=== PATIENT | male | born 1945 | race Hispanic/Latino ===

== ENCOUNTER 2016-10-03 02:34 | Inpatient (IN) | payer OTHER ==
[~2016-10-03] VITALS: Ht 165.1 cm; Wt 79.2 kg
--- NOTE | 2016-10-03 02:44 | ED CARDIAC/CP/PALPITATIONS ---
History of Present Illness General Chief Complaint: Chest Pain Stated Complaint: "PER PT CHEST PAIN" Source: patient Exam Limitations: no limitations Vital Signs & Intake/Output Vital Signs & Intake/Output Vital Signs Date Time Temp Pulse Resp B/P Pulse O2 O2 Flow FiO2 Ox Delivery Rate 10/03 1045 98 Nasal 2.0L Cannula 10/03 1045 98.0 62 16 120/72 98 Nasal 2.0L Cannula 10/03 1008 96.8 62 18 132/79 10/03 1007 96.8 62 18 132/79 10/03 1007 96.8 62 18 132/79 99 Nasal 2.0L Cannula 10/03 0937 61 18 123/70 100 Nasal 2.0L Cannula 10/03 0932 63 16 129/75 100 Nasal 2.0L Cannula 10/03 0912 60 18 132/68 98 Nasal 2.0L Cannula 10/03 0843 65 18 130/79 98 Nasal 2.0L Cannula 10/03 0824 69 18 126/75 99 Nasal 2.0L Cannula 10/03 0811 64 18 125/69 97 Nasal 2.0L Cannula 10/03 0752 59 18 168/78 99 Nasal 2.0L Cannula 10/03 0737 65 18 124/74 99 Nasal 2.0L Cannula 10/03 0722 65 18 126/72 99 Nasal 2.0L Cannula 10/03 0713 63 18 119/74 99 Nasal 2.0L Cannula 10/03 0652 66 18 153/71 98 Nasal 2.0L Cannula 10/03 0637 96.8 69 18 125/72 98 Nasal 2.0L Cannula 10/03 0622 63 18 131/76 98 Nasal 2.0L Cannula 10/03 0607 70 18 120/76 98 Nasal 2.0L Cannula 10/03 0552 77 18 123/74 97 Nasal 2.0L Cannula 10/03 0531 96.7 66 18 126/72 97 Nasal 2.0L Cannula 10/03 0438 76 18 137/77 96 Room Air 10/03 0344 94 Room Air 10/03 0342 82 18 133/77 94 Room Air 10/03 0320 78 18 135/85 97 Room Air 10/03 0312 88 18 128/83 96 Room Air 10/03 0257 97.9 69 18 175/87 96 Room Air Allergies Coded Allergies: atorvastatin (From LIPITOR) (Intermediate, MUSCLE PAIN 10/03/16) Reconcile Medications Aspirin (Aspirin*) 81 MG TAB.CHEW 1 TAB PO DAILY HEART HEALTH (Reported) Cholecalciferol (Vitamin D3) (Vitamin D) 1,000 UNIT TABLET 2 TAB PO DAILY VITAMIN (Reported) Fish Oil/Borage/Flax/Om3,6,9#1 ([place] 3-6-9 1,200 MG Softgel) 1,200 MG CAPSULE 1 CAP PO DAILY VITAMIN (Reported) Fluticasone/Salmeterol (Advair 250-50 Diskus) 250 MCG-50 MCG/DOSE BLST.W.DEV 1 PUF INH BID SOB (Reported) Glyburide 5 MG TABLET 1 TAB PO TID DFM (Reported) Lisinopril 10 MG TABLET 1 TAB PO BID HTN (Reported) Metformin HCl 1,000 MG TABLET 1 TAB PO BID DM (Reported) Metoprolol Tartrate 25 MG TABLET 0.5 TAB PO BID HTN (Reported) Multiple Vitamin (Multivitamins) 1 EACH TABLET 1 TAB PO DAILY VITAMIN ( Reported) Rosuvastatin Calcium (Crestor) 5 MG TABLET 3 TAB PO QWEEK CHOLESTEROL ( Reported) Triage Nurses Notes Reviewed? yes Onset: Abrupt Duration: hour(s): (1) Timing: single episode today Quality/Severity: severe, pressure, SQUEEZING Location: central Radiation: back Activities at Onset: sleep Aspirin Today: no aspirin today HPI: This is a 71-year-old male with history of hypertension, diabetes, coronary disease status post 6 vessel bypass in 2005 presents to the ER with chief complaint of chest pain which woke him up from sleep approximately one hour ago. He complains of a squeezing sensation in the center of his chest with some radiation to the back. Denies any shortness of breath or palpitations or diaphoresis. No history of recent chest pain. Last nuclear stress test done was in 2014 and reported to be normal. Patient is compliant with his medications. He took some ibuprofen prior to arrival. Patient states that prior to his bypass he did not have an ID. He states he was diagnosed on treadmill stress test. Past History Travel History Traveled to [place] past 21 day No Medical History Any Pertinent Medical History? see below for history Cardiovascular: CAD, hypertension, hyperlipidemia Endocrine: diabetes Surgical History Surgical History: CABG (x6 in 2005) Psychosocial History What is your primary language Mongolian Family History Hx Contributory? No Review of Systems Review of Systems Constitutional: Denies: chills, fever. EENTM: Reports: no symptoms. Respiratory: Denies: cough, short of breath. Cardiovascular: Reports: chest pain. Denies: palpitations, peripheral edema. GI: Denies: abdominal pain. Genitourinary: Reports: no symptoms. Musculoskeletal: Reports: back pain. Skin: Reports: no symptoms. Neurological/Psychological: Reports: no symptoms. Hematologic/Endocrine: Denies: bruising, bleeding, polyuria, polydipsia. Immunologic/Allergic: Denies: splenectomy. All Other Systems: Reviewed and Negative Physical Exam Physical Exam General Appearance: well developed/nourished, alert, awake, mild distress Head: atraumatic, normal appearance Eyes: Bilateral: normal appearance, PERRL, EOMI. Ears, Nose, Throat: normal pharynx, normal ENT inspection Neck: normal inspection, supple, full range of motion Respiratory: normal breath sounds, chest non-tender, no respiratory distress Cardiovascular: regular rate/rhythm Peripheral Pulses: 2+ radial (R), 2+ radial (L) Gastrointestinal: normal bowel sounds, soft, non-tender Rectal: deferred (DENIES BLACK/BLOODY STOOL) Extremities: normal inspection, normal range of motion Neurologic/Psych: no motor/sensory deficits, awake, alert, oriented x 3 Skin: intact, normal color, warm/dry Core Measures ACS in differential dx? Yes ASA ordered for poss ACS? Yes-ordered Severe Sepsis Present: No Septic Shock Present: No Progress Differential Diagnosis: AMI, aortic dissection, unstable angina Plan of Care: Orders Procedure Date/time Status TROPONIN LEVEL 10/03 1400 Active EKG 10/03 1400 Active Turn and Reposition 10/03 1130 Active Teach/Educate 10/03 1130 Active Skin Integrity Protocol 10/03 1130 Active Skin/Pressure Ulcer Assess (Sk 10/03 1130 Active Precautions 10/03 1130 Active Pain Treatment and Response 10/03 1130 Active Nutritional Intake, Monitor 10/03 1130 Active Isolation 10/03 1130 Active Patient Care Conference 10/03 1130 Active Activity/Ambulation 10/03 1130 Active ACTIVE SURVEILLANCE NARES 10/03 1050 Active PARTIAL THROMBOPLASTIN TIME 10/03 0940 Complete TROPONIN LEVEL 10/03 0800 Complete EKG 10/03 0800 Active EKG 10/03 0514 Active Pathway - chart 10/03 0511 Active Patient Data 10/03 0511 Active Patient Data 10/03 0436 Active Admit to inpatient 10/03 0426 Active Vital Signs 10/03 0426 Complete Code Status 10/03 0426 Active Intake & Output 10/03 025 Active EKG 10/03 025 Active Telemetry/Geotechnical Operating Engineer 10/03 250 Complete TROPONIN LEVEL 10/03 250 Complete PARTIAL THROMBOPLASTIN TIME 10/03 025 Complete PROTHROMBIN TIME 10/03 025 Complete COMPREHENSIVE METABOLIC PANEL 10/03 250 Complete CBC WITHOUT DIFFERENTIAL 10/03 250 Complete EKG 10/03 0236 Active TRC EVALUATION (GEN) 10/03 UNK Active House Staff 10/03 UNK Active VTE Mechanical Prophylaxis 10/03 UNK Active Vital Signs 10/03 UNK Active Intake & Output 10/03 UNK Complete FingerStick- Glucose 10/03 UNK Active ECHOCARDIOGRAM 10/03 UNK Active Current Medications Sig/[place] Start time Last Medication Dose Stop Time Status Admin Atorvastatin Calcium 80 MG 1700 10/03 1700 CAN (Lipitor) Rosuvastatin Calcium 5 MG 10/03 1130 AC (Crestor) Lisinopril 10 MG BID 10/03 1000 AC (Prinivil) Metoprolol Tartrate 12.5 MG BID 10/03 1000 AC (Lopressor) Acetaminophen 650 MG Q6P PRN 10/03 0515 AC (Tylenol) Acetaminophen/ 1 TAB Q6P PRN 10/03 0515 AC Hydrocodone Bitart (Vicodin) Oxycodone/ 2 TAB Q6P PRN 10/03 0515 AC Acetaminophen (Percocet) Laboratory Tests 10/03/16 1009: APTT 84 H 10/03/16 0800: Troponin I 0.12 *H 10/03/16 0300: Anion Gap 12, Estimated GFR > 60, BUN/Creatinine Ratio 20.0, Glucose 83, Calcium 9.7, Total Bilirubin 0.4, AST 31, ALT 71, Alkaline Phosphatase 44, Troponin I < 0.01, Total Protein 6.6, Albumin 4.0, Globulin 2.6, Albumin/Globulin Ratio 1.5, PT 11.1, INR 1.06, APTT 30, CBC w Diff NO MAN DIFF REQ, RBC 5.46, MCV 81.6, MCH 27.2, RDW 14.3, MPV 10.2, Gran % 23.9 L, Lymphocytes % 54.8 H, Monocytes % 14.2 H, Eosinophils % 6.5 H, Basophils % 0.6, Absolute Granulocytes 1.3 L, Absolute Lymphocytes 3.1, Absolute Monocytes 0.8 H, Absolute Eosinophils 0.4, Absolute Basophils 0, PUBS MCHC 33.3 Microbiology 10/03 1045 UPPER RESP: Surveillance Culture - RECD 3:08 AM Pain down to 5/10 from 910 after sl nitroglycerin. Subtle st elevation 1, avl, no previous to compare. repeat EKG in process Repeat EKG shows resolved ST depressions. Second nitroglycerin given. Heparin drip ordered. D/W dr. Starks. Currently EKG has normalized x 2. Troponin negative. Patient admitted to the ICU. Nitroglycerin drip ordered for 08/23 chest pain. Patient now chest pain free. (VICTORINA POOLE,SAMIA) Diagnostic Imaging: Viewed by Me: Radiology Read. Discussed w/RAD: Radiology Read. CXR Impression: PATIENT: REBEKAH CAMPOS I PRESENT AGE: 71 PATIENT ACCOUNT NO: [id number] : 44 LOCATION: [facility] ORDERING PHYSICIAN: SAMIA PRAJAPATI MD SERVICE DATE: 10/03/16 EXAM TYPE: RAD - XRY-PORTABLE CHEST XRAY EXAMINATION: XR PORTABLE CHEST CLINICAL INFORMATION: Chest pain COMPARISON: None TECHNIQUE: Portable AP view of the chest was obtained. FINDINGS : Status post median sternotomy for CABG. Lungs are clear. No pulmonary vascular congestion or pleural effusion. IMPRESSION: No acute abnormality of the chest. DICTATED BY: NICA CAMACHO MD DATE/TIME DICTATED:10/03/16355 SCRUFF WORKER :ARTURO DATE/TIME TRANSCRIBED:10/03/16355 CONFIDENTIAL, DO NOT COPY WITHOUT APPROPRIATE AUTHORIZATION. <Electronically signed in Other Vendor System> SIGNED BY: NICA CAMACHO MD 10/03/16 0401 Initial ED EKG: NSR, ST elevation (1, AVL 1/2 MM), ST depression (2,3,AVF, V2-V5 ) Repeat EKG: changed (NO ST DEPRESSION) Departure Departure Time of Disposition: 424 Disposition: STILL A PATIENT Condition: Stable Clinical Impression Primary Impression: ACS (acute coronary syndrome) Referrals: UNKNOWN (PCP/Family) Departure Forms: Customer Survey General Discharge Information Admission Note Spoke With: KAROLYN POOLE,EFREM Wagner Documentation of Exam: Documentation of any treatments & extenuating circumstances including Concerns Regarding Discharge (functional status, medication knowledge or non-compliance, living conditions, etc.) that warrant an admission rather than observation: [ HEPARIN DRIP, NITRO DRIP, ASPIRIN, SERIAL EKG, SERIAL TROPONIN, POSSIBLE BLACKSMITH ASSISTANT TODAY, ECHOCARDIOGRAM] Critical Care Note Critical Care Note Critical Care Time: 30-74 min
--- NOTE | 2016-10-03 02:45 | NUR ---
TRIAGE: PATIENT TO ER FROM HOME REPORTING +CP, HX BYPASS X 6 IN 2005. PATIENT REPORTS PAIN 9-10/10 AT THIS TIME. EKG IN PROGRESS. PATIENT CHANGED AND PLACED ON MARKETING INTELLIGENCE ANALYST, HR:80'S IRREGULAR W/ PRESENCE OF P-WAVES. REPORTS HX ARRHYTHMIA. PATIENT REPORTS PAIN WOKE FROM SLEEP APPROX 1AM W/ PAIN.
--- NOTE | 2016-10-03 02:53 | NUR ---
VICTORINA AT BEDSIDE FOR EVAL.
--- NOTE | 2016-10-03 03:04 | NUR ---
IV EST #20 LEFT FOREARM. PATIENT MEDICATED W/ ASA 325MG AND NITRO 1 TAB SL PER EMAR. TOLERATED WELL. SECOND EKG IN PROGRESS.
--- NOTE | 2016-10-03 03:08 | NUR ---
PATIENT REPORTS PAIN FROM 9/10 TO 5/10 S/P NITRO SL. SECOND NITRO BEING ORDERED BY MD PRAJAPATI AT THIS TIME.
[2016-10-03 03:13] LABS: ABSOLUTE BASOPHIL COUNT 0 /CUMM (0.0-0.2); ABSOLUTE EOSINOPHIL COUNT 0.4 /CUMM (0.0-0.7); ABSOLUTE GRANULOCYTE CT 1.3 /CUMM (1.4-6.5); ABSOLUTE LYMPH COUNT 3.1 /CUMM (1.2-3.4); ABSOLUTE MONOCYTE COUNT 0.8 /CUMM (0.10-0.60); BASOPHIL % 0.6 % (0.0-2.0); EOSINOPHIL % 6.5 % (0-5); GRANULOCYTE % 23.9 % (42.2-75.2); HEMATOCRIT 44.5 % (42-52); MEAN CORPUSCULAR HGB 27.2 PG (27.0-31.0); MEAN CORPUSCULAR HGB CONC 33.3 G/DL (33.0-37.0); MEAN CORPUSCULAR VOLUME 81.6 FL (80.0-94.0); MEAN PLATELET VOLUME 10.2 FL (7.4-10.4); PLATELET COUNT 167 /CUMM (130-400); RBC DISTRIBUTION WIDTH 14.3 % (11.5-14.5); RED BLOOD CELL CT 5.46 /CUMM (4.70-6.10); WHITE BLOOD CELL COUNT 5.6 /CUMM (4.8-10.8)
--- NOTE | 2016-10-03 03:13 | NUR ---
PATIENT MEDICATED W/ SECOND NITRO SL PER EMAR. TOLERATING WELL. REPORTS PAIN 12/21 TO 11/21. VICTORINA TO BEDSIDE FOR EVAL.
--- NOTE | 2016-10-03 03:21 | NUR ---
CURRENT PAIN 2/10.
[2016-10-03 03:27] LABS: PT 11.1 SEC (9.4-12.5); PTT 30 SEC (25-37)
--- NOTE | 2016-10-03 03:29 | NUR ---
SECOND IV EST #20 RIGHT FOREARM.
--- NOTE | 2016-10-03 03:41 | NUR ---
NIRTO PASTE 1 INCH APPLIED TO CHEST PER EMAR. TOLERATING WELL, CURRENT PAIN 1-2/10. PATIENT MEDICATED W/ HEPARIN BOLUS AND HEPARIN DRIP EST AT 18.9ML/HR (12 UNITS/KG/HR), DOSE AND RATE CONFIRMED W/ STEPHANIE RN. TOLERATING WELL. GUIAC NEGATIVE PER VICTORINA.
--- NOTE | 2016-10-03 03:46 | NUR ---
PORTABLE CHEST XRAY IN PROGRESS.
--- NOTE | 2016-10-03 04:01 | RADIOLOGY REPORT ---
EXAMINATION: XR PORTABLE CHEST CLINICAL INFORMATION: Chest pain COMPARISON: None TECHNIQUE: Portable AP view of the chest was obtained. FINDINGS: Status post median sternotomy for CABG. Lungs are clear. No pulmonary vascular congestion or pleural effusion. IMPRESSION: No acute abnormality of the chest.
--- NOTE | 2016-10-03 04:26 | NUR ---
MD PRAJAPATI AT BEDSIDE FOR REEVAL.
--- NOTE | 2016-10-03 04:39 | NUR ---
PATIENT MEDICATED W/ THIRD NITRO SL PER EMAR. TOLERATED WLL. VSS.
[2016-10-03] MEDS ORDERED: METFORMIN HCL1000 M1 PO (04:44)
[2016-10-03] MEDS ORDERED: LISINOPRIL10 M1 PO (04:45)
[2016-10-03] MEDS ORDERED: METOPROLOL TART25 M1 PO (04:45)
[2016-10-03] MEDS ORDERED: GLYBURIDE5 M1 PO (04:45)
[2016-10-03] MEDS ORDERED: ASPIRIN81 M4 PO (04:46)
[2016-10-03] MEDS ORDERED: CRESTOR5 M1 PO (04:46)
[2016-10-03] MEDS ORDERED: ADVAIR 250-501 EACH INH ×2 (04:47)
[2016-10-03] MEDS ORDERED: OMEGA 3-6-9 11200 MG PO (04:47)
[2016-10-03] MEDS ORDERED: VITAMIN D1000 UNIT PO (04:48)
[2016-10-03] MEDS ORDERED: MULTIVITAMINS1 EAC9 PO (04:48)
--- NOTE | 2016-10-03 04:50 | NUR ---
HOUSE STAFF AT BEDSIDE FOR EVAL. PATIENT HOME MED LIST UPDATED.
--- NOTE | 2016-10-03 04:52 | NUR ---
PT ASSIGNED TO RM# [id number] ICU
--- NOTE | 2016-10-03 04:59 | History & Physical ---
ROBERTO CARLOS POOLE,ARLENE 10/03/16 0457: General Information and HPI MD Statement: I have seen and personally examined REBEKAH CAMPOS I and documented this H&P. The patient is a 71 year old M who presented with a patient stated chief complaint of [chest pain]. Source of Information: patient Exam Limitations: no limitations History of Present Illness: This is a 71-year-old male with past medical history significant for hypertension, hyperlipidemia, and 6 vessel CABG in 2005, DEOVN, diabetes, benign adrenal tumor, who presents with chief complaint of chest pain. He stated it started around 1 AM this morning and it woke him from sleep. He describes it as a 9 out of 10 substernal pressure that radiates to his back and his right arm. He took aspirin and came to the hospital. He finds no relief with nitroglycerin. During time of interview he rates chest pain at 2/10. He is currently retired and denies any acute stressors. However he does endorse that a nephew of his yesterday in the morning. He denies any shortness of breath, diaphoresis, palpitations, dizziness, abdominal pain, or nausea. Per the patient his last nuclear stress test was done in 2014 and it was supposedly normal. Of note, he states that he's never had an AK and that his CAD was diagnosed via a stress test. Patient states that all his usual doctors are at [facility]. He denies any history of cigarette smoking, IV drug abuse and endorses only occasional intake of alcohol. 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 Ambulation: independent IADLs Independent: shopping, housework, finances, food prep, telephone, transportation , medication admin. Employment History Employment Retired Review of Systems Review of Systems Constitutional: Denies: chills, fever, malaise, weakness. EENTM: Reports: no symptoms. Denies: blurred vision. Cardiovascular: Reports: chest pain. Denies: edema, orthopena, palpitations. Respiratory: Reports: no symptoms. Denies: cough, short of breath. GI: Denies: abdominal pain, constipation, diarrhea. Genitourinary: Reports: no symptoms. Musculoskeletal: Reports: no symptoms. Skin: Reports: no symptoms. Exam & Diagnostic Data Last 24 Hrs of Vital Signs/I&O Vital Signs Date Time Temp Pulse Resp B/P Pulse O2 O2 Flow FiO2 Ox Delivery Rate 10/03 0438 76 18 137/77 96 Room Air 10/03 0344 94 Room Air 10/03 0342 82 18 133/77 94 Room Air 10/03 0320 78 18 135/85 97 Room Air 10/03 0312 88 18 128/83 96 Room Air 10/03 0257 97.9 69 18 175/87 96 Room Air Intake & Output 10/03 0800 10/03 0000 10/02 1600 Intake Total Output Total Balance Patient 78.925 kg Weight Physical Exam General Appearance Alert, Oriented X3, Cooperative, No Acute Distress Skin No Rashes, No Breakdown, No Significant Lesion HEENT Atraumatic, PERRLA, EOMI Neck Supple Cardiovascular Regular Rate, Normal S1, Normal S2 Lungs Clear to Auscultation, Normal Air Movement Abdomen Soft, No Tenderness Neurological Normal Speech, Cranial Nerves 3-12 NL Last 24 Hrs of Labs/Arvin: Laboratory Tests 10/03/16 0300: Anion Gap 12, Estimated GFR > 60, BUN/Creatinine Ratio 20.0, Glucose 83, Calcium 9.7, Total Bilirubin 0.4, AST 31, ALT 71, Alkaline Phosphatase 44, Troponin I < 0.01, Total Protein 6.6, Albumin 4.0, Globulin 2.6, Albumin/Globulin Ratio 1.5, PT 11.1, INR 1.06, APTT 30, CBC w Diff NO MAN DIFF REQ, RBC 5.46, MCV 81.6, MCH 27.2, RDW 14.3, MPV 10.2, Gran % 23.9 L, Lymphocytes % 54.8 H, Monocytes % 14.2 H, Eosinophils % 6.5 H, Basophils % 0.6, Absolute Granulocytes 1.3 L, Absolute Lymphocytes 3.1, Absolute Monocytes 0.8 H, Absolute Eosinophils 0.4, Absolute Basophils 0, PUBS MCHC 33.3 Assessment/Plan Assessment: This is a 71-year-old male with past medical history significant for 6 vessel bypass in 2005, hypertension, hyperlipidemia, diabetes, DEVON, who presents with chief complaint of chest pain. Given patient's significant cardiac history and EKG changes in ED, patient will be admitted to ICU for further workup. First EKG showed QTC 417, heart rate 68, and T-wave inversions in 2, and V2-V4. He does have half a millimeter ST elevations in aVL and lead 1 Plan: 1.Chest pain: Patient has significant cardiac history including 6 vessel bypass. He denies any history of AK. Chest x-ray shows no acute abnormalities. CBC showed a normal white count, hemoglobin and hematocrit. First troponin negative. EKG shows ST depression in III and V2 through V4. Repeat EKG done 30 minutes later showed no evidence of EKG changes. * Patient was started on Heparin drip * Trend troponin * Monitor EKG * Nothing by mouth * Cardiology consult * Possibility of cath in a.m. * Low-dose aspirin 2. Diabetes: Patient is on glyburide and metformin at home. Hold home medications * Nothing by mouth sliding scale * Fingerstick 3. Hyperlipidemia/hypertension: In ED his blood pressure was recorded at 175/87 , subsequently down to 133/77. * Continue Crestor 5 mg 3 times a week * Continue lisinopril 10 mg twice a day * Continue metoprolol tartrate 2.5 mg 0.5 twice a day Full code Nothing by mouth Chemical DVT prophylaxis As Ranked By This Provider Problem List: 1. ACS (acute coronary syndrome) Core Measures/Miscellaneous Acute Coronary Syndrome ACS Diagnosis: Yes Cerebrovascular Accident CVA/TIA Diagnosis: No Congestive Heart Failure CHF Diagnosis: No Venous Thromboembolism VTE Risk Factors: Age > 40 VTE Prophylaxis Ordered Inpt: [facility] d/t: No contraindications No VTE Pharm Prophylaxis d/t: No contraindications VTE Diagnosis: No VTE Type: NONE VTE Confirmed by (Test): NONE Severe Sepsis Severe Sepsis Present: No Septic Shock Septic Shock Present: No Miscellaneous Documentation Attending Case Discussed With: KAROLYN POOLE,EFREM Wagner Primary Care Physician: UNKNOWN Patient sees these Specialists unknown Level of Patient Care: Critical Care (CRI) Consults Needed: Consulting Specialty: Cardiology HANG POOLE,CARL 10/03/16 0506: Resident Review Statement Resident Statement: examined this patient, discussed with development intern Other Findings: 71-year-old gentleman with a history of 6 vessel bypass over 10 years ago, coronary artery disease, hypertension, hyperlipidemia, diabetes mellitus presents to the emergency room this morning after being awoken from his sleep with 10 out of 10 sharp substernal chest pain radiating to his left upper shoulder and arm. The pain did not self alleviate and he presented to the emergency room. At present he only complains of 2 out of 10 chest pain but has been given a couple of sublingual nitroglycerin and nitroglycerin paste. At present he denies any shortness of breath, nausea, vomiting, diarrhea, fevers, chills, recent illnesses or sick contacts. States he received news that one of his nephews yesterday which has been an emotional stressor on him. He denies any previous history of cigarette smoking, alcohol or illicit drug use. 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 Off note, patient states that all his physicians are [facility]. Physical exam- Vital signs are stable Lungs are clear to auscultation bilaterally Cardiac exam reveals a normal S1 and S2, no murmurs Abdomen soft, nontender, bowel sounds are appreciated Extremities show no cyanosis or clubbing or peripheral edema EKG- Rate 68, RI 188, QRS 84, QTc 417; sinus rhythm, T-wave inversions in leads 3, aVF, ST depression half a millimeter in leads V2 through V4 Chest x-ray is unremarkable for any acute abnormalities Assessment- 1. Angina at rest 2. History of coronary artery disease, status post 6 vessel bypass 10 years ago 3. Hypertension 4. Hyperlipidemia 5. Diabetes mellitus Plan- ICU admit Trend troponin, EKG Echo He has been started on heparin drip per ER after consulting with Dr. Starks Cardio consult Continue all by mouth home meds Patient nothing by mouth for now, will likely require cath We'll start D5 half-normal saline at 50 mL per hour Nothing by mouth sliding scale Pain pathway DVT prophylaxis is being addressed with IV heparin Full code KAROLYN POOLE,CALLAO 10/03/16 8235: General Information and HPI Allergies/Medications Home Med list Aspirin (Aspirin*) 81 MG TAB.CHEW 1 TAB PO DAILY HEART HEALTH (Reported) Cholecalciferol (Vitamin D3) (Vitamin D) 1,000 UNIT TABLET 2 TAB PO DAILY VITAMIN (Reported) Fish Oil/Borage/Flax/Om3,6,9#1 ([place] 3-6-9 1,200 MG Softgel) 1,200 MG CAPSULE 1 CAP PO DAILY VITAMIN (Reported) Fluticasone/Salmeterol (Advair 250-50 Diskus) 250 MCG-50 MCG/DOSE BLST.W.DEV 1 PUF INH BID SOB (Reported) Glyburide 5 MG TABLET 1 TAB PO TID DFM (Reported) Heparin (Heparin-1/2NS 25,000 Units/500) 25,000 UNIT/500 ML (50 UNIT/ML) IV.SOLN 1 BAG IV ONCE blood thinner Lisinopril 10 MG TABLET 1 TAB PO BID HTN (Reported) Metformin HCl 1,000 MG TABLET 1 TAB PO BID DM (Reported) Metoprolol Tartrate 25 MG TABLET 0.5 TAB PO BID HTN (Reported) Multiple Vitamin (Multivitamins) 1 EACH TABLET 1 TAB PO DAILY VITAMIN ( Reported) Nitroglycerin/D5w (Ntg 25 MG/250 Ml in D5w) 25 MG/250 ML (0.1 MG/ML) INFUS..BTL 1 BAG IV ONCE CHEST PAIN Rosuvastatin Calcium (Crestor) 5 MG TABLET 3 TAB PO QWEEK CHOLESTEROL ( Reported) Attending MD Review Statement Attending Statement Attending MD Statement: examined this patient, discuss w/resident/PA/DIRECT MAIL CLERK, discussed with family, discussed with nursing, reviewed images Attending Assessment/Plan: Patient is a 71-year-old man status post bypass surgery about 10 years ago. He presents with typical chest pain midsternal radiating to his right arm which started at 1:00 this morning and was rated at 10 over 10 at the time. It is subsequently decreased but he still has 1/10 pain at this time. His initial EKG showed [address] depression in the inferior and anterior leads with [address] elevation in leads 1 and aVL. An EKG done 20 minutes later showed resolution of the ST segment changes coincident with the patient's chest pain improving considerably. He has not had any arrhythmias or any other complications since he has been here about 6 hours. His first set of troponin was negative and a second set is pending. I discussed with the the patient that I thought he should have cardiac catheterization done early although this is not technically a PAMI case. He prefers to be transferred to [facility] for this and I will contact his regular doctor, Dr. Curt Harrington, for coordination of this. If this is not possible we will transfer him to a closer hospital. In the meantime he is on heparin, IV nitroglycerin, aspirin and we will continue this plus his regular medications.
--- NOTE | 2016-10-03 05:32 | NUR ---
REPORT CALLED TO TURBOGENERATOR OPERATORDEANDRE BOWLES THOUGH ICU UNABLE TO TAKE PATIENT IN UNIT AT THIS TIME PER ICU AND RN ENRICHMENT SPECIALIST. MD PRAJAPATI AT BEDSIDE FOR REEVAL. PATENT REPORTS 08/23 CONTINUED CP. PLACED ON 2LNC BY AT THIS TIME FOR COMFORT. VSS.
--- NOTE | 2016-10-03 05:52 | NUR ---
FINGERSTICK:161. D5-1/2 NS INFUSING AT 50ML/HR PER EMAR. TOLERATING WELL. NITRO DRIP INFUSING AT 3ML/HR (5 MCG/MINUTE) PER MD PRAJAPATI. TOLERATING WELL. WILL CONTINUE TO MONITOR BP Q15 MINUTES. D5-1/2 NS INFUSING VIA IV SITE #1 W/ NITRO DRIP (PER PHARMACY THEY ARE COMPATABLE. HEPARIN DRIP IS NOT COMPATABLE W/ D5-1/2 NS). HEPARIN DRIP CONTINUES TO INFUSE VIA IV SITE #2.
--- NOTE | 2016-10-03 06:06 | NUR ---
PATIENT MEDICATED W/ 4UNITS NOVOLIN R PER SLIDING SCALE FOR NPO PATIENT. DOSE VERIFIED W/ YAMILETH CARRERA. TOLERATED WELL. PATIENT REPORTS "THE CP IS FINALLY STARTING TO GO AWAY."
--- NOTE | 2016-10-03 07:20 | NUR ---
ASSUMED CARE OF RN IVONNE PT RESTING ON STRETCHER WITH EYES CLOSED; REGULAR RESPIRATIONS AND EQUAL CHEST RISE AND FALL NOTED. SAT 99% ON 2L NC. PT REMAINS NORMAL SINUS, RATE 60'S WITH B/P AUTO CYCLING Q 15 MIN. AWAITING BED ASSIGNMENT AT THIS TIME
--- NOTE | 2016-10-03 07:27 | PN- Resident CRCU ---
Subjective HPI/CRCU Issues: No acute events overnight. Patient seen and examined this morning. Chest pain has resolved. He feels well and has no complaints. Objective Vital Signs & I&O Last 8 Hrs of Vitals and I&O: Vital Signs Date Time Temp Pulse Resp B/P Pulse O2 O2 Flow FiO2 Ox Delivery Rate 10/03 0824 69 18 126/75 99 Nasal 2.0L Cannula 10/03 0811 64 18 125/69 97 Nasal 2.0L Cannula 10/03 0752 59 18 168/78 99 Nasal 2.0L Cannula 10/03 0737 65 18 124/74 99 Nasal 2.0L Cannula 10/03 0722 65 18 126/72 99 Nasal 2.0L Cannula 10/03 0713 63 18 119/74 99 Nasal 2.0L Cannula 10/03 0652 66 18 153/71 98 Nasal 2.0L Cannula 10/03 0637 96.8 69 18 125/72 98 Nasal 2.0L Cannula 10/03 0622 63 18 131/76 98 Nasal 2.0L Cannula 10/03 0607 70 18 120/76 98 Nasal 2.0L Cannula 10/03 0552 77 18 123/74 97 Nasal 2.0L Cannula 10/03 0531 96.7 66 18 126/72 97 Nasal 2.0L Cannula 10/03 0438 76 18 137/77 96 Room Air 10/03 0344 94 Room Air 10/03 0342 82 18 133/77 94 Room Air 10/03 0320 78 18 135/85 97 Room Air 10/03 0312 88 18 128/83 96 Room Air 10/03 0257 97.9 69 18 175/87 96 Room Air Exam General Appearance: well developed/nourished, no apparent distress, alert, awake , comfortable Head: atraumatic, normal appearance Ears, Nose, Throat: moist mucus membranes Neck: supple Respiratory: lungs clear Cardiovascular: regular rate/rhythm, normal S1 and S2 Gastrointestinal: soft, non-tender, positive bowel sounds Extremities: no edema Cranial Nerves: grossly normal Skin: normal color, warm/dry Current Medications: Current Medications Sig/Marbin Start time Last Medication Dose Route Stop Time Status Admin Acetaminophen 650 MG Q6P PRN 10/03 0415 AC PO Acetaminophen/ 1 TAB Q6P PRN 10/03 0415 AC Hydrocodone Bitart PO Aspirin 81 MG DAILY 10/03 1000 AC PO Aspirin 0 .STK-MED ONE 10/03 0303 DC PO Aspirin 325 MG ONCE ONE 10/03 0300 DC 10/03 PO 10/03 0301 0304 Atorvastatin Calcium 80 MG 1700 10/03 1700 UNVr PO Budesonide/ 2 PUF BID 10/03 1000 AC Formoterol Fumarate INH Dextrose/Sodium 1,000 ML Q20H 10/03 0515 AC 10/03 Chloride IV 0547 Heparin Sodium 0 .STK-MED ONE 10/03 0332 DC (Porcine) .ROUTE Heparin Sodium 4,000 UNIT ONCE ONE 10/03 0330 DC 10/03 (Porcine) IV 10/03 0331 0338 Heparin Sodium 25,000 UNIT Q24H 10/03 0330 AC 10/03 (Porcine) IV 0339 Sodium Chloride 500 ML Insulin Human Regular 0 Q6 10/03 0600 AC 10/03 SC 0606 Lisinopril 10 MG BID 10/03 1000 AC PO Metoprolol Tartrate 12.5 MG BID 10/03 1000 AC PO Nitroglycerin 25 MG ONCE ONE 10/03 0545 AC 10/03 Dextrose/Water 250 ML IV 10/04 0544 0552 Nitroglycerin 0.4 MG ONCE ONE 10/03 0430 DC 10/03 SL 10/03 0431 0439 Nitroglycerin 0 .STK-MED ONE 10/03 0333 WA TOP Nitroglycerin 1 GM ONCE ONE 10/03 0330 DC 10/03 TOP 10/03 0331 0338 Nitroglycerin 0.4 MG ONCE ONE 10/03 0315 DC 10/03 SL 10/03 0316 0313 Nitroglycerin 0.4 MG ONCE ONE 10/03 0300 WA 10/03 SL 10/03 0301 0304 Oxycodone/ 2 TAB Q6P PRN 10/03 0515 AC Acetaminophen PO Patient Medication 1 UNIT ONE NR 10/03 0700 Teaching ED 10/03 1300 Patient Medication 1 UNIT ONE NR 10/03 0700 [facility] ED 10/03 1300 Patient Medication 1 UNIT ONE NR 10/03 0700 [facility] ED 10/03 1300 Results Results: Laboratory Tests 10/03 10/03 0800 0300 Chemistry Sodium (137 - 145 mmol/L) 141 Potassium (3.5 - 5.1 mmol/L) 3.9 Chloride (98 - 107 mmol/L) 102 Carbon Dioxide (22 - 30 mmol/L) 27 Anion Gap (5 - 16) 12 BUN (9 - 20 mg/dL) 20 Creatinine (0.7 - 1.2 mg/dL) 1.0 Estimated GFR (>60 ml/min) > 60 BUN/Creatinine Ratio (7 - 25 %) 20.0 Glucose (65 - 99 mg/dL) 83 Calcium (8.4 - 10.2 mg/dL) 9.7 Total Bilirubin (0.2 - 1.3 mg/dL) 0.4 AST (17 - 59 U/L) 31 ALT (21 - 72 U/L) 71 Alkaline Phosphatase (< 127 U/L) 44 Troponin I (<0.11 ng/ml) Pending < 0.01 Total Protein (6.3 - 8.2 g/dL) 6.6 Albumin (3.5 - 5.0 g/dL) 4.0 Globulin (1.9 - 4.2 gm/dL) 2.6 Albumin/Globulin Ratio (1.1 - 2.2 %) 1.5 Coagulation PT (9.4 - 12.5 SEC) 11.1 INR (0.90 - 1.17) 1.06 APTT (25 - 37 SEC) 30 Hematology CBC w Diff NO MAN DIFF REQ WBC (4.8 - 10.8 /CUMM) 5.6 RBC (4.70 - 6.10 /CUMM) 5.46 Hgb (14.0 - 18.0 G/DL) 14.9 Hct (42 - 52 %) 44.5 MCV (80.0 - 94.0 FL) 81.6 MCH (27.0 - 31.0 PG) 27.2 RDW (11.5 - 14.5 %) 14.3 Plt Count (130 - 400 /CUMM) 167 MPV (7.4 - 10.4 FL) 10.2 Gran % (42.2 - 75.2 %) 23.9 L Lymphocytes % (20.5 - 51.1 %) 54.8 H Monocytes % (1.7 - 9.3 %) 14.2 H Eosinophils % (0 - 5 %) 6.5 H Basophils % (0.0 - 2.0 %) 0.6 Absolute Granulocytes (1.4 - 6.5 /CUMM) 1.3 L Absolute Lymphocytes (1.2 - 3.4 /CUMM) 3.1 Absolute Monocytes (0.10 - 0.60 /CUMM) 0.8 H Absolute Eosinophils (0.0 - 0.7 /CUMM) 0.4 Absolute Basophils (0.0 - 0.2 /CUMM) 0 PUBS MCHC (33.0 - 37.0 G/DL) 33.3 EKG Findings: Sinus rhythm HR [address] depression in the inferior and anterior leads [address] elevation in leads 1 and aVL QTc 417 Radiology Findings: No acute abnormality of the chest. Impression/Plan Impression/Problem List Impression: 71 y/o M with PMHx of CAD s/p 6 vessel CABG in 2005, HTN and T2DM who presents with chest pain. Problem List: 1. NSTEMI (non-ST elevated myocardial infarction) Pain Ratin Tomorrow's Labs & Rationales: None - patient was transferred to [facility]. Plan Respiratory: Stable. Satting well and without shortness of breath on 2 L NC. Infectious Diseases: Afebrile and without leukocytosis. No signs or symptoms of infection. Cardiovascular: #Chest pain: Initial EKG showed [address] depressions in the inferior and anterior leads and [address] elevations in leads 1 and aVL. EKG was repeated 20 minutes later which showed the resolution of the initial EKG changes. Cardiology was consulted and patient was started on IV heparin and nitroglycerin drips per their recs. Patient's home medications including metoprolol, lisinopril, aspirin and statin were continued. Initial troponin was <0.01 but later uptrended to 0.12. This likely represents NSTEMI in the presence of ST depressions. Dr. Starks was consulted who felt that patient would benefit from a cardiac catheterization and needs to be transferred. * Patient was transferred to [facility] for cardiac catheterization. Hematology: H/H stable. Metabolic: #T2DM: Prior to admission oral hypoglycemic agents were held and patient was maintained on Novolog NPO sliding scale. Alimentary: NPO for cardiac catheterization Neurological: AAO x3. No issues. DVT/Prophylaxis: mechanical, pharmacological Code Status: Full Code
--- NOTE | 2016-10-03 07:57 | NUR ---
PT WOKEN FROM SLEEP. WHEN ASKED ABOUT PAIN, STATES "ITS JUST ABOUT GONE". DRIPS REMAIN FOLLOWS: L FOREARM: NITRO AT 3ML/HR AND D5 1/2 NS @ 50 ML/HR R FOREARM: HEPARIN IN 1/2 NS @ 12 UNITS/KH/HR = 18.9 ML/HR PT DENIES ANY NEEDS OR COMPLAINTS AT THIS TIME AND IS AWARE HE IS WAITING ON A BED ASSIGNMENT UPSTAIRS. HOUSE STAFF INTO EVAL MST DRAWING REPEAT TROPONIN AT THIS TIME
--- NOTE | 2016-10-03 08:08 | NUR ---
REPEAT TROPONIN (0800) SENT TO LAB BY [facility] REPEAT EKG COMPLETED AND PLACED IN CHART RESIDENT IMGE PAGED AT X108 AND MADE AWARE EKG IS IN CHART
--- NOTE | 2016-10-03 08:13 | NUR ---
EKG VIEWED BY IM[facility] - "NO CHANGES" PLACED IN CHART
--- NOTE | 2016-10-03 08:47 | NUR ---
PT VOIDED IN URINAL - APPROX 200 ML CLEAR URINE ABLE TO TURN AND REPOSITION IN BED INDEPENDENTLY. REMAINS WITHOUT COMPLAINTS. DENIES CURRENT PAIN. CONVERSING WITHOUT ANY DISTRESS NOTED. REMAINS AWARE HE IS WAITING FOR BED ASSIGNMENT. TELEVISION REMOTE GIVEN
--- NOTE | 2016-10-03 09:14 | NUR ---
CARDIOLOGY AT THE BEDSIDE
--- NOTE | 2016-10-03 09:26 | NUR ---
BED ASSIGNMENT 105
--- NOTE | 2016-10-03 09:40 | NUR ---
PER LAB, TROPONIN HAS "4 MINUTES LEFT" AND WILL BE RESULTED
--- NOTE | 2016-10-03 09:47 | NUR ---
CRITICAL TEST RESULTS [id number] REBEKAH CAMPOS I 71 M TESTS AND RESULTS: TROPONIN 0.12 Results received and read back by: AUDRA TOWNSEND Results received date and time: 10/03/16 0947 The following provider was notified of the results, and read the results back: 0.12 Notified date and time: 10/03/16 at [facility] X 108
--- NOTE | 2016-10-03 09:50 | NUR ---
SPOKE WITH IMGE WHO STATES PT IS NOT BEING TRANSFERRED AT THIS TIME AND MAY BE TRANSPORTED TO ICU. CRITICAL RESULT REPORTED TO IMGE ALONG WITH MOST RECENT VITAL SIGNS. PER MD, HOLD LISINOPRIL AND LOPRESSOR PO AT THIS TIME DUE TO CONSISTENT HR 60'S AND B/P 123/70.
--- NOTE | 2016-10-03 09:59 | NUR ---
MED WITH SYMBICORT AND ASA PER OCT. PT REMAINS WITHOUT COMPLAINTS.
--- NOTE | 2016-10-03 10:06 | NUR ---
REPORT GIVEN TO ED IN ICU TRANSPORT CALLED
--- NOTE | 2016-10-03 10:10 | NUR ---
PPT DRAWN AND SENT TO THE LAB (BLUE TOP)
[2016-10-03 10:29] LABS: PTT 84 SEC (25-37)
[2016-10-03 10:45] VITALS: BP 120/72
--- NOTE | 2016-10-03 10:46 | NUR ---
PT TRANSPORTED TO ICU 105 ON MONITOR WITH THIS RN REMAIN NORMAL SINUS ON MONITOR, RATE 60'S-70. PT DENIES ACUTE CHEST PAIN STATING "IT COMES A LITTLE BIT BUT NOT MUCH. LESS THAN A 1 WHEN I HAVE IT". PT DENIES ANY OTHER COMPLAINTS. PLEASANT AND CONVERSANT THOUGHOUT TRANSPORT CARE TRANSFERRD TO RESERVATION CLERK ED.
--- NOTE | 2016-10-03 11:54 | Discharge Summary ---
Visit Information Visit Dates Admission Date: 10/03/16 Discharge Date: 10/03/2016 Hospital Course Course Attending Physician: EFREM PARR MD, V. Primary Care Physician: UNKNOWN Consulting Request: Consulting Specialty: Cardiology Hospital Course: This is a 71-year-old male with past medical history significant for hypertension, hyperlipidemia, and 6 vessel CABG in 2005, DEV[place], diabetes, benign adrenal tumor, who presents with chief complaint of chest pain. He stated it started around 1 AM this morning and it woke him from sleep. He describes it as a 9 out of 10 substernal pressure that radiates to his back and his right arm. He took aspirin and came to the hospital. He finds no relief with nitroglycerin. During time of interview he rates chest pain at 2/10. Problem list: 1. NSTEMI/STEMI. 2. History of coronary artery disease, status post 6 vessel bypass 10 years ago Hospital course: Patient was admitted to the ICU due to EKG changes of [address] segment depression in the inferior anterior lead with [address] elevation in lead 1 and aVL. Patient started on IV nitroglycerin and IV heparin drip, his first troponin was negative, second troponin 0.12. Also continue the patient's home medication of metoprolol, lisinopril, statin and aspirin. Patient free of any chest pain after we start his treatment. After evaluation by the fur joiner, he recommended the patient to be transferred for cardiac catheterization to [facility]. Imaging: EXAMINATION: XR PORTABLE CHEST FINDINGS: Status post median sternotomy for CABG. Lungs are clear. No pulmonary vascular congestion or pleural effusion. IMPRESSION: No acute abnormality of the chest. Allergies: Coded Allergies: atorvastatin (From LIPITOR) (Intermediate, MUSCLE PAIN 10/03/16) Disposition Summary Disposition Principal Diagnosis: NSTEMI Additional Diagnosis: History of coronary artery disease, status post 6 vessel bypass 10 years ago Hypertension Hyperlipidemia Diabetes mellitus Discharge Disposition: other general hospital Discharge Instructions General Discharge Information Code Status: Full Code Patient's Diet: Diabetic Patient's Activity: As torelated. Follow-Up Instructions/Appts: Please follow-up with your primary care doctor after discharge Please follow-up with your fur joiner after discharge. Medications at Discharge Discharge Medications: Continue taking these medications: Metformin HCl (Metformin HCl) 1,000 MG TABLET 1 Tablet ORAL TWICE DAILY Comments: NOT GIVEN IN HOSPITAL TODAY Glyburide (Glyburide) 5 MG TABLET 1 Tablet ORAL THREE TIMES DAILY Comments: NOT GIVEN IN HOSPITAL TODAY Metoprolol Tartrate (Metoprolol Tartrate) 25 MG TABLET 0.5 Tablet ORAL TWICE DAILY Comments: 12.5 MG GIVEN 10/03/16 AT 1200 Lisinopril (Lisinopril) 10 MG TABLET 1 Tablet ORAL TWICE DAILY Comments: Last Taken: 10/03/16 Time: 1200 Rosuvastatin Calcium (Crestor) 5 MG TABLET 3 Tablet ORAL QWEEK Comments: Last Taken: 10/03/16 Time: 1130 Aspirin (Aspirin*) 81 MG TAB.CHEW 1 Tablet ORAL DAILY Comments: Last Taken: 10/03/16 Time: 0900 Fish Oil/Borage/Flax/Om3,6,9#1 ([place] 3-6-9 1,200 MG Softgel) 1,200 MG CAPSULE 1 Capsule ORAL DAILY Comments: NOT GIVEN IN HOSPITAL Fluticasone/Salmeterol (Advair 250-50 Diskus) 250 MCG-50 MCG/DOSE BLST.W.DEV 1 Puff Inhale through mouth TWICE DAILY Comments: Last Taken: 10/03/16 Time: 0900 Multiple Vitamin (Multivitamins) 1 EACH TABLET 1 Tablet ORAL DAILY Comments: NOT GIVEN IN HOSPTIAL Cholecalciferol (Vitamin D3) (Vitamin D) 1,000 UNIT TABLET 2 Tablet ORAL DAILY Comments: NOT GIVEN IN HOSPITAL Start taking the following new medications: Heparin (Heparin-1/2NS 25,000 Units/500) 25,000 UNIT/500 ML (50 UNIT/ML) IV.SOLN 1 Bag INTRAVEN GIVE ONCE Days = 1 No Refills Nitroglycerin/D5w (Ntg 25 MG/250 Ml in D5w) 25 MG/250 ML (0.1 MG/ML) INFUS..BTL 1 Bag INTRAVEN GIVE ONCE Days = 1 No Refills Copies To: EFREM PARR MD, V. Attending MD Review Statement Documenting Attending: EFREM PARR MD, V. Other Findings: I agree with the discharge summary as dictated by the resident. The patient is being transferred to [facility] in the care of his regular fur joiner, Dr. Curt Paz. I have spoken to Dr. Paz and he agrees to take the patient in transfer for cardiac catheterization.
[2016-10-03 12:00] VITALS: BP 132/78
[2016-10-03] MEDS ORDERED: HEPARIN-1/25000 UNI1 IV (13:34)
[2016-10-03] MEDS ORDERED: NTG 25 MG/25 MG/250 IV (13:34)
--- NOTE | 2016-10-03 13:35 | Patient Discharge Instructions ---
Discharge Instructions General Discharge Information You were seen/treated for: CHEST PAIN Special Instructions: Please follow-up with your primary care doctor. 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 Diet Continue normal diet: No Recommended Diet: Diabetic, Heart Healthy Activity Full Activity/No Limits: No Activity Self Limited: Yes Acute Coronary Syndrome Inclusion Criteria At DC or during hospital stay patient has or had the following: ACS DIAGNOSIS Yes Discharge Core Measures Meds if any: Prescribed or Continued at Discharge ALKA/ARB if EF <40% Yes Aspirin Yes Beta-Kristie Yes Statin Yes Meds if any: NOT Prescribed or Continued at Discharge Congestive Heart Failure Inclusion Criteria At DC or during hospital stay patient has or had the following: CHF DIAGNOSIS No Discharge Core Measures Meds if any: Prescribed or Continued at Discharge Meds if any: NOT Prescribed or Continued at Discharge Cerebrovascular accident Inclusion Criteria At DC or during hospital stay patient has or had the following: CVA/TIA Diagnosis No Discharge Core Measures Meds if any: Prescribed or Continued at Discharge Meds if any: NOT Prescribed or Continued at Discharge Venous thromboembolism Inclusion Criteria VTE Diagnosis No VTE Type NONE VTE Confirmed by (Test) NONE Discharge Core Measures - Per Current guidelines, there needs to be overlap - treatment for the first 5 days of Warfarin therapy. - If discharged on Warfarin prior to 5 days of - overlap therapy, the patient will need to be - assessed for post discharge needs including - *Post discharge parental anticoagulation - *Warfarin and/or parental anticoagulation education - *Follow up date to check INR post discharge At least 5 days overlap therapy as Inpatient No Meds if any: Prescribed or Continued at Discharge Note: Overlap Therapy is Warfarin and Anticoagulant Meds if any: NOT Prescribed or Continued at Discharge
== END 2016-10-03 15:00 | disposition short-term general hospital (02) | DRG 282 ==
LOC: ENRESERVDT → CANRESERV → ENRESERVTM → EDBD 02:34 → ERH 02:34 → ERHI 04:26 → CRI 04:26 → ERHI 04:46 → CRI 10:24
PROVIDERS: Emergency Medicine; ADMIT Internal Medicine
DX: I21.4 Non-ST elevation (NSTEMI) myocardial infarction (principal); I11.9 Hypertensive heart disease without heart failure; E11.9 Type 2 diabetes mellitus without complications; I25.10 Atherosclerotic heart disease of native coronary artery without angina pectoris; Z95.1 Presence of aortocoronary bypass graft; E78.5 Hyperlipidemia, unspecified; Z79.84 Long term (current) use of oral hypoglycemic drugs
CPT/HCPCS: CCU; 93005; 93010; 96374; 99291; J1644; J3490; J7042; J7060